=== PATIENT | female | born 1940 | race Caucasian/White ===

== ENCOUNTER 2018-01-16 09:48 | Outpatient (CLI) | payer MEDICARE, BC | END 2018-01-16 09:49 | disposition home or self-care (01) | LOC: BICMAMMO 09:48 | PROVIDERS: ATTEND Internal Medicine Hematology & Oncology | DX: Z08 Encounter for follow-up examination after completed treatment for malignant neoplasm (principal); Z85.3 Personal history of malignant neoplasm of breast; Z80.3 Family history of malignant neoplasm of breast | CPT/HCPCS: 77066; G0279 ==

== ENCOUNTER 2018-11-02 11:15 | Inpatient (IN) | payer MEDICARE, BC ==
[2018-11-06] MEDS ORDERED: Sodium Chloride 0.9% 30 ML ONE (06:46)
[2018-11-06] MEDS ORDERED: Thrombin 5000 UNITS/5 ML VIAL ONE (06:46)
[2018-11-06] MEDS ORDERED: Bupivacaine HCl 0.5%/Epinephrine 1:200,000/PF 30 ml Vial ONE (06:46)
[2018-11-06] MEDS ORDERED: Phenylephrine HCL 10 MG/ML VIAL ONE ×2 (06:47→16:38)
[2018-11-06] MEDS ORDERED: Albumin 5% 500 ML ONE (06:47)
[2018-11-06] MEDS ORDERED: Fentanyl 100 MCG/2 ML VIAL ONE ×4 (07:08→15:40)
--- NOTE | 2018-11-06 09:33 | HP ---
HISTORY OF PRESENT ILLNESS: Ms. Petersen is a 78-year-old female, who comes to our office for evaluation of low back pain. The patient states that she has had similar pain in 2016 with injections helped her feel better for few years. Recently, the pain has returned and she has had 3 injections in June without benefit. She states the most recent injection gave her relief for few hours, but then the pain came back. She has pain across her belt line, worse on the left than the right and she has pain radiating into her hamstrings and the longer she is standing the worse she gets. This pain is permitting from doing daily activities. 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 She has been taking tramadol, Tylenol 3 without any benefit. She denies physical therapy. She states standing is worse than if she rotates at any point. She has a very sharp pain. REVIEW OF SYSTEMS: A 10-point review of systems has been completed and is negative other than stated in the above HPI. PAST MEDICAL HISTORY: Breast cancer, hyperlipidemia, chronic back pain, hypertension. PAST SURGICAL HISTORY: Breast cancer 12/2015. FAMILY HISTORY: Father is , diagnosed with heart disease. Mother is , diagnosed with cancer. Children are alive. SOCIAL HISTORY: The patient is a nonsmoker. Denies alcohol or other illicit drug use. MEDICATIONS: 1. Tylenol 3. 2. Valsartan. 3. Rosuvastatin. 4. Aspirin 81 mg. 5. Anastrozole. 6. Vitamin D3. 7. Escitalpram. ALLERGIES: NO KNOWN DRUG ALLERGIES. PHYSICAL EXAMINATION: CONSTITUTIONAL: Well appearing, well nourished, alert. RESPIRATIONS: Normal work of breathing on room air. NEUROLOGIC: Awake, alert, oriented x3. Speech is spontaneous, fluent. Normal fund of knowledge. Cranial nerves grossly intact. Lower extremities 5/5 bilateral strength in hip flexion, knee flexion, knee extension, dorsiflexion, plantar flexion, EHL, no radiculopathy. Single leg raise bilaterally normal. Hip rotation normal bilaterally. Tender to palpate lumbar spine. Deep tendon reflexes diminished bilaterally. Negative Babinski. No clonus. SENSORY: Light touch intact. GAIT AND STATION: Sit to stand normal. Normal gait. IMAGING DATE: MRI L2-L3 stenosis, L3-L4 foraminal stenosis, L4-L5 lateral recess disease, L5-S1 foraminal stenosis on both sides. Flexion, extension in standing, she develops an L4-L5 listhesis not present supine. There is greater than 3 mm of instability with flexion extension. ASSESSMENT: The patient has lumbar stenosis with neurogenic claudication as well as spondylolisthesis. Dr. Huff has offered surgery, laminectomy L2 through S1 with a TLIF at L4-L5 and L5-S1 to stabilize. The patient states that she understands the risks and is willing to proceed with surgery. Job ID: [id number]
[2018-11-06 12:36] LABS: Hemoglobin 11.1 g/dL (12.0-16.0)
[2018-11-06] MEDS ORDERED: Meperidine HCl/PF 25 MG/ML VIAL SLOW IVP PRN (13:05)
[2018-11-06] MEDS ORDERED: PACU-Morphine 4MG/ML VIAL SLOW IVP PRN (13:05)
[2018-11-06] MEDS ORDERED: Promethazine HCl 25 MG/ML VIAL IM PRN ×2 (13:05→14:01)
[2018-11-06] MEDS ORDERED: Promethazine HCl 25 MG/ML VIAL SLOW IVP PRN (13:05)
[2018-11-06] MEDS ORDERED: Morphine Sulfate 2 MG/ML SYRINGE SLOW IVP PRN (13:05)
[2018-11-06] MEDS ORDERED: Ondansetron HCl/PF 4 MG/2 ML Vial IVP PRN (13:05)
[2018-11-06] MEDS ORDERED: HYDROmorphone 2 MG/ML VIAL SLOW IVP PRN (13:05)
[2018-11-06 13:41] LABS: Hemoglobin 10.3 g/dL (12.0-16.0)
[2018-11-06] MEDS ORDERED: Acetaminophen/Codeine 30-300mg Tablet PO PRN (14:01)
[2018-11-06] MEDS ORDERED: diphenhydrAMINE 25 MG CAP PO PRN (14:01)
[2018-11-06] MEDS ORDERED: Mag-Al 1200 mg/1200 mg/30 ML UDCUP PO PRN (14:01)
[2018-11-06] MEDS ORDERED: Acetaminophen 325 MG TAB PO PRN (14:01)
[2018-11-06] MEDS ORDERED: Bisacodyl 10 MG SUPP PR PRN (14:01)
[2018-11-06] MEDS ORDERED: Milk Of Magnesia 30 ML UDCUP PO PRN (14:01)
[2018-11-06] MEDS ORDERED: traMADol HCl 50 MG TAB PO PRN (14:01)
[2018-11-06] MEDS ORDERED: Promethazine 25 MG TAB PO PRN (14:01)
[2018-11-06] MEDS ORDERED: Ondansetron PF 4 MG/2 ML Vial IVP PRN (14:01)
[2018-11-06] MEDS ORDERED: diphenhydrAMINE 50 MG/ML VIAL IVP PRN (14:01)
[2018-11-06] MEDS ORDERED: Morphine 4 MG/ML VIAL SLOW IVP PRN (14:01)
[2018-11-06] MEDS ORDERED: Acetaminophen 500 MG TAB PO PRN (14:04)
[2018-11-06] MEDS ORDERED: Anastrozole 1 MG TAB PO SCH (14:15)
[2018-11-06] MEDS ORDERED: Morphine 2 MG/ML SYRINGE SLOW IVP PRN (14:54)
[2018-11-06 16:38] VITALS: BMI 24.6
[2018-11-06] MEDS ORDERED: Lidocaine 1% PF 5 ML VIAL ONE (16:38)
[2018-11-06] MEDS ORDERED: ePHEDrine 50 MG/ML VIAL ONE (16:38)
[2018-11-06] MEDS ORDERED: PROPOFOL 200 MG/20 ML VIAL ONE (16:38)
[2018-11-06] MEDS ORDERED: Rocuronium Bromide 10 MG/ML (10ML VIAL) ONE (16:38)
[2018-11-06] MEDS ORDERED: Dexamethasone 20 MG/5 ML VIAL ONE (16:38)
[2018-11-06] MEDS ORDERED: Glycopyrrolate 0.2 MG/ML 5 ML SYRINGE ONE (16:38)
[2018-11-06] MEDS ORDERED: Ondansetron PF 4 MG/2 ML Vial ONE (16:38)
--- NOTE | 2018-11-06 16:39 | OP ---
DATE OF PROCEDURE: 11/06/2018 FREEZER TUNNEL OPERATOR: Iris Cast PA-C. PREOPERATIVE INDICATION: Treat pain and prevent neurological deterioration. PREOPERATIVE DIAGNOSES: 1. Multilevel lumbar stenosis with neurogenic claudication. 2. Lumbosacral foraminal disease. 3. Bilateral L5 radiculopathic pain from collapse of intervertebral disk. 4. Unstable spondylolisthesis, L4-L5. POSTOPERATIVE DIAGNOSES: 1. Multilevel lumbar stenosis with neurogenic claudication. 2. Lumbosacral foraminal disease. 3. Bilateral L5 radiculopathic pain from collapse of intervertebral disk. 4. Unstable spondylolisthesis, L4-L5. OPERATIVE PROCEDURES: 1. Decompressive laminectomy, medial facetectomy, foraminotomy at L2-L3, L3-L4, L4-L5, and L5-S1. 2. Transforaminal lumbar interbody arthrodesis, L4-L5 and L5-S1. 3. Placement of intervertebral biomechanical device, L4-L5 and L5-S1. 4. Pedicle screw and isis instrumentation, L4 through S1. 5. Posterolateral arthrodesis, L4-L5 and L5-S1. 6. Local morselized autograft and morselized allograft. PREOPERATIVE MEDICATIONS: Ancef 2 g IV. DRAIN NUMBER: One. DRAIN TYPE: 10-Kiswahili Ton. DESCRIPTION OF PROCEDURE: The patient was brought to the operating room. General endotracheal anesthesia was induced. The patient was carefully positioned prone on the Dinesh frame with the appropriate padding for the chest and hips. A lateral fluoro radiograph was used to plan our incision. The lumbar skin was sterilely prepped and draped. We opened a midline incision with a 10 blade knife and we controlled bleeding with bipolar and monopolar cautery. We used monopolar cautery to dissect through subcutaneous tissues to the thoracodorsal fascia. We incised the fascia in the midline and we reflected the paraspinal muscles off the spinous process and laminae of L2, L3, L4, L5, and S1. Self-retaining retractors were placed and a lateral fluoro radiograph confirmed the levels upon which we were operating. We then carried our dissection over the facet joints at L3-L4, L4-L5. and L5-S1. We exposed the transverse processes of L4 and L5 bilaterally as well as the sacral ala bilaterally. We irrigated with bacitracin irrigation. We then used an Adson rongeur to remove the spinous process of L2, L3, L4, L5, and the superior portion of the sacrum. Using Kerrison rongeurs, we fashioned our laminectomy down the midline. We widened our laminectomy defect using Kerrisons. We performed medial facetectomies. We undermined the lateral recesses and we removed bone spurs until ball probe could pass through the lateral recess and out the foramen where the L2, L3, L4, L5, and S1 nerve roots. Once our decompression was secured, we turned our attention to fusion and instrumentation. We performed a complete facetectomy at L4-L5 and L5-S1 on the left. With these access points, we entered the intervertebral space at the L4-L5 and L5-S1 levels. We incised the disks and removed disk contents using curettes and rongeurs. We used a rectangular shaped bone rasp to measure the height of each interspace. The lumbosacral interspace measured 9 mm and the L4-L5 interspace measured 12 mm in height. We prepared the endplates for grafting. We brought the appropriately-sized PEEK intervertebral grafts into the field. These were loaded with demineralized bone matrix and morselized autograft. The autograft was obtained from our laminectomy bone, which was carefully cleaned of soft tissue, morcellized, and added into demineralized bone matrix to form our fusion substrate. The PEEK intervertebral grafts were advanced into the interspace under radiographic guidance to the appropriate depth. We turned our attention to pedicle screw instrumentation. Using bony anatomic landmarks, palpation of the medial portion of the pedicles and a lateral fluoro radiograph as our guide, we chose the entry points for pedicle screws at L4, L5, and S1 bilaterally. We drilled out our entry points and then used a bone awl to advance our trajectories into the vertebral bodies. We tapped each trajectory with a threaded tap and we probed them. The ball probe confirmed that our screw trajectories were completely encased in bone. We then placed 6.5 mm in diameter pedicle screws at L4, L5, and S1 bilaterally. A 360-degree image set was generated with our isocentric C-arm, confirming adequate positioning of our pedicle screw instrumentation. We then irrigated with bacitracin irrigation. With the high-speed drill, we decorticated the transverse processes of L4 and L5 bilaterally as well as the sacral ala. Over the decorticated bone, we left demineralized bone matrix and morselized autograft as our posterolateral fusion substrate. We dropped the rods down the screw heads and tightened caps over the rods. Using a torque/counter-torque mechanism, we ensured adequate tightness. Before final tightening, we applied gentle compression across each interspace to keep our interbody grafts in place. With a ball probe, we probed the L4 and L5 nerve root foramina and found them widely decompressed. We then irrigated the center of the wound. We treated the wound with vancomycin powder and we tunneled the drain inferiorly through a separate stab incision. We closed our incision in anatomical layers over the drain and we applied a sterile dressing. This was a clean case, no contamination. Job ID: [id number]
[2018-11-06] MEDS: tiZANidine HCl 4 MG TAB PO PRN (16:48)
[2018-11-06] MEDS: traMADol HCl 50 MG TAB PO PRN (16:49)
[2018-11-06] MEDS: Sodium Chloride 0.9% 1,000 ML IV SCH (17:01)
[2018-11-06] MEDS: CEFAZOLIN 2 GM in Premix Bag 1 BAG IVPB SCH ×2 (17:02→23:00)
[2018-11-06] MEDS ORDERED: Sodium Chloride 0.9% 1,000 ML IV SCH (19:15)
[2018-11-06 19:27] LABS: Hemoglobin 8.3 g/dL (12.0-16.0)
[2018-11-06] MEDS: Rosuvastatin 10 MG TAB PO SCH (20:38)
[2018-11-06] MEDS: Escitalopram Oxalate 10 mg Tablet PO SCH (20:38)
[2018-11-06] MEDS: Acetaminophen/Codeine 30-300mg Tablet PO PRN (20:39)
[2018-11-07] MEDS: tiZANidine HCl 4 MG TAB PO PRN ×2 (03:57→14:01)
[2018-11-07] MEDS: traMADol HCl 50 MG TAB PO PRN (03:57)
[2018-11-07] MEDS: Sodium Chloride 0.9% 1,000 ML IV SCH ×3 (03:58→21:13)
[2018-11-07 05:03] LABS: #Lymphocytes 0.6 thou/uL (1.20-3.40); #Monocytes 0.8 thou/uL (0.11-0.59); #Neutrophils 7.2 thou/uL (1.40-6.50); %Basophils 0.3 % (0.0-1.0); %Eosinophils 0.1 % (0.0-10.0); %Lymphocytes 7.3 % (21.0-51.0); %Neutrophils 83.2 % (42.0-75.0); Hemoglobin 7.6 g/dL (12.0-16.0); Mean Corpuscular HGB CONC 33.4 g/dL (32.0-36.0); Mean Corpuscular Hemoglobin 33.5 pg (27.0-31.0); Mean Platelet Volume 8.4 fL (7.4-10.4); Platelet Count 107 thou/uL (130-400); Platelet Morphology Comment Appears Decreased; RBC Distribution Width 11.7 % (11.5-14.5); Red Blood Cell (RBC) Count 2.26 mill/uL (4.20-5.40); White Blood Cell (WBC) Count 8.7 thou/uL (4.8-10.8)
[2018-11-07] MEDS: CEFAZOLIN 2 GM in Premix Bag 1 BAG IVPB SCH ×3 (05:54→22:17)
[2018-11-07] MEDS: Acetaminophen/Codeine 30-300mg Tablet PO PRN ×3 (08:45→18:42)
[2018-11-07] MEDS: Valsartan 80 MG TAB PO SCH (08:49)
[2018-11-07] MEDS: Hydrochlorothiazide 25 MG TAB PO SCH (08:49)
[2018-11-07] MEDS ORDERED: Non-Formulary Item 1 EACH (Valsartan/Hydrochlorothiazide [Valsartan-Hctz 160-12.5 Mg Tab] PO SCH (09:00)
[2018-11-07] MEDS: Rosuvastatin 10 MG TAB PO SCH (20:46)
[2018-11-07] MEDS: Escitalopram Oxalate 10 mg Tablet PO SCH (20:46)
[2018-11-08] MEDS: Acetaminophen/Codeine 30-300mg Tablet PO PRN ×4 (06:28→21:02)
[2018-11-08] MEDS: CEFAZOLIN 2 GM in Premix Bag 1 BAG IVPB SCH ×3 (06:28→22:38)
[2018-11-08] MEDS: Valsartan 80 MG TAB PO SCH (09:31)
[2018-11-08] MEDS: Hydrochlorothiazide 25 MG TAB PO SCH (09:31)
--- NOTE | 2018-11-08 09:52 | PRG ---
DATE OF SERVICE: 11/08/2018 Ms. Petersen is 2 days out from a long segment lumbar decompression with a two-level TLIF. She got up and moved yesterday. Her back is sore. It is a little bit more sore today than it was yesterday. She looks forward to meeting with Physical Therapy today in finding out if there is a bed in the inpatient rehabilitation facility that can take her. Once such a bed becomes available, we can make a transfer. Until then, she will work with our therapy group in the hospital. Job ID: [id number] MTDD
[2018-11-08] MEDS: Sodium Chloride 0.9% 1,000 ML IV SCH (19:49)
[2018-11-08] MEDS: tiZANidine HCl 4 MG TAB PO PRN (21:02)
[2018-11-08] MEDS: Rosuvastatin 10 MG TAB PO SCH (21:02)
[2018-11-08] MEDS: Escitalopram Oxalate 10 mg Tablet PO SCH (21:02)
[2018-11-09] MEDS: Acetaminophen/Codeine 30-300mg Tablet PO PRN ×4 (03:37→18:22)
[2018-11-09] MEDS: tiZANidine HCl 4 MG TAB PO PRN (03:37)
[2018-11-09] MEDS: CEFAZOLIN 2 GM in Premix Bag 1 BAG IVPB SCH (06:23)
[2018-11-09] MEDS: Valsartan 80 MG TAB PO SCH (08:11)
[2018-11-09] MEDS: Hydrochlorothiazide 25 MG TAB PO SCH (08:11)
[2018-11-09] MEDS: Sodium Chloride 0.9% 1,000 ML IV SCH (09:48)
--- NOTE | 2018-11-09 11:34 | PRG ---
DATE OF SERVICE: 11/09/2018 Ms. Petersen is 3 days out from decompression and fusion of lumbar spine. She walked around the halls yesterday and went farther than she has since surgery. Her drain is tapering off nicely and can be removed. I do not find any new deficits on exam. When there is a bed open in rehab, she can be transferred. Job ID: [id number] MTDD
[2018-11-09 15:29] VITALS: BP 168/72; TEMP 98.6
== END 2018-11-09 19:11 | DRG 455 ==
LOC: SURG A 11-06 05:42
PROVIDERS: ADMIT Neurological Surgery; ATTEND Neurological Surgery
PROC: 0SG00AJ Fusion of Lumbar Vertebral Joint with Interbody Fusion Device, Posterior Approach, Anterior Column, Open Approach (ICD-10-PCS; principal; 2018-11-06)
PROC: 0SG0071 Fusion of Lumbar Vertebral Joint with Autologous Tissue Substitute, Posterior Approach, Posterior Column, Open Approach (ICD-10-PCS; 2018-11-06)
PROC: 0SG30AJ Fusion of Lumbosacral Joint with Interbody Fusion Device, Posterior Approach, Anterior Column, Open Approach (ICD-10-PCS; 2018-11-06)
PROC: 0SG3071 Fusion of Lumbosacral Joint with Autologous Tissue Substitute, Posterior Approach, Posterior Column, Open Approach (ICD-10-PCS; 2018-11-06)
PROC: 01NB0ZZ Release Lumbar Nerve, Open Approach (ICD-10-PCS; 2018-11-06)
PROC: 30233N1 Transfusion of Nonautologous Red Blood Cells into Peripheral Vein, Percutaneous Approach (ICD-10-PCS; 2018-11-06)
DX: M48.062 Spinal stenosis, lumbar region with neurogenic claudication (principal); M43.16 Spondylolisthesis, lumbar region; E78.5 Hyperlipidemia, unspecified; I25.10 Atherosclerotic heart disease of native coronary artery without angina pectoris; G89.29 Other chronic pain; I10 Essential (primary) hypertension; Z85.3 Personal history of malignant neoplasm of breast; Z79.82 Long term (current) use of aspirin; Z98.890 Other specified postprocedural states
CPT/HCPCS: 36415; 36430; 76000; 85014; 85018; 85025; 86850; 86900; 86901; C1713; C1768; J0131; J0670; J0690; J1100; J2001; J2270; J2370; J2405; J2704; J3010; J3370; J3490; P9016; P9045; Q0163

== ENCOUNTER 2018-12-18 13:16 | Outpatient (CLI) | payer MEDICARE, BC ==
[2018-11-02 12:51] LABS: Hemoglobin 13.3 g/dL (12.0-16.0); Mean Corpuscular HGB CONC 33.3 g/dL (32.0-36.0); Mean Corpuscular Volume 99.2 fL (78.0-98.0); Mean Platelet Volume 9.2 fL (7.4-10.4); Platelet Count 165 thou/uL (130-400); RBC Distribution Width 11.8 % (11.5-14.5); Red Blood Cell (RBC) Count 4.04 mill/uL (4.20-5.40); White Blood Cell (WBC) Count 7.4 thou/uL (4.8-10.8)
[2018-11-02 13:09] LABS: Prothrombin Time 13.5 SEC (12.0-14.7)
[2018-11-02 13:14] LABS: Anion Gap 15 mmol/L (10-20); BUN (Urea Nitrogen) 21 mg/dL (9.8-20.1); Calc. Creatinine Clearance 0 mL/min (70-130); Carbon Dioxide 27 mmol/L (23-31); Chloride 102 mmol/L (98-107); Estimated GFR-MDRD 68; Glucose 72 mg/dL (83-110); Potassium 4.7 mmol/L (3.5-5.1); Sodium 139 mmol/L (136-145)
--- NOTE | 2018-12-18 15:24 | RAD ---
LUMBAR SPINE TWO VIEWS: INDICATIONS: Follow up postop lumbar spine. COMPARISON: Prior lumbar spine radiographs, dated 10/02/2018. FINDINGS: Since the comparison examination, there have been bilateral pedicle screws placed at L4 through S1, w ith interconnecting cables. There are intervertebral disk cages at L4-L5 and at L5-S1. Spinal align ment appears stable. Multilevel disk degenerative disease is similar appearing. No acute osseous ab normality is evident. IMPRESSION: Postoperative lumbar spine. POS: CET
== END 2018-12-18 13:17 | disposition home or self-care (01) ==
LOC: TBSIIMAG 13:16
PROVIDERS: ATTEND Neurological Surgery
DX: Z01.812 Encounter for preprocedural laboratory examination (principal); M51.36 Other intervertebral disc degeneration, lumbar region; M48.061 Spinal stenosis, lumbar region without neurogenic claudication; M43.16 Spondylolisthesis, lumbar region; Z98.890 Other specified postprocedural states
CPT/HCPCS: 72100; 80048; 85027; 85610; 85730

== ENCOUNTER 2019-01-25 14:28 | Outpatient (CLI) | payer MEDICARE, BC ==
--- NOTE | 2019-01-25 15:10 | MMO ---
Bilateral MAMMO Bilat Diag DDI+JAEL. CLINICAL HISTORY: Patient is 78 years old and is seen for diagnostic exam. The patient has no family history of breast cancer. The patient has a history of invasive ductal right breast carcinoma in 2017. The patient has a history of right Lumpectomy in 2017 - malignant. VIEWS: The views performed were: bilateral craniocaudal with tomosynthesis; bilateral mediolateral oblique with tomosynthesis; and bilateral mediolateral with tomosynthesis. FILMS COMPARED: The present examination has been compared to prior imaging studies performed at [facility] on 04/03/2015, 04/09/2016, 12/16/2016 and 01/16/2018. MAMMOGRAM FINDINGS: The breasts are heterogeneously dense, which could obscure a lesion on mammography. Finding 1: There are stable benign appearing calcifications seen in both breasts. Finding 2: There is a stable post-surgical scar seen in the right breast. There are no suspicious masses, suspicious calcifications, or new areas of architectural distortion. IMPRESSION: THERE IS NO MAMMOGRAPHIC EVIDENCE OF MALIGNANCY. A ROUTINE FOLLOW-UP MAMMOGRAM IN 1 YEAR IS RECOMMENDED. THE RESULTS OF THIS EXAM WERE SENT TO THE PATIENT. ACR BI-RADS Category 2 - Benign finding MAMMOGRAPHY NOTE: 1. A negative mammogram report should not delay a biopsy if a dominant of clinically suspicious mass is present. 2. Approximately 10% to 15% of breast cancers are not detected by mammography. 3. Adenosis and dense breasts may obscure an underlying neoplasm. Reported by: POPEYE REDD MD Electonically Signed: [id number]
== END 2019-01-25 14:29 | disposition home or self-care (01) ==
LOC: BICMAMMO 14:28
PROVIDERS: ATTEND Internal Medicine Hematology & Oncology
DX: Z08 Encounter for follow-up examination after completed treatment for malignant neoplasm (principal); Z85.3 Personal history of malignant neoplasm of breast; Z98.890 Other specified postprocedural states
CPT/HCPCS: 77066; G0279

== ENCOUNTER 2019-07-18 09:38 | Outpatient (CLI) | payer MEDICARE, BC ==
--- NOTE | 2019-07-18 10:45 | MRI ---
MRI of thebrain with and without contrast: 07/18/2019 COMPARISON:None available HISTORY:Breast cancer, staging examination TECHNIQUE: Multiplanar multisequence MR imaging of thebrain with and without contrast Findings:The diffusion weighted imaging demonstrates no evidence for acute infarction. The axial grad ient echo imaging demonstrates no evidence for intracranial hemorrhage. Numerous foci of increased T2 and FLAIR signal noted within the periventricular, deep, and subcortica l white matter, evidence of small vessel disease. The imaged paranasal sinuses/mastoid air cells demonstrate normal signal intensity. Arterial flow voi ds at the axial level of the skull base appear grossly unremarkable on the T2-weighted imaging. The postcontrast imaging demonstrates no abnormal enhancement. No MR evidence of intracranial metasta tic disease. IMPRESSION:No MR evidence of intracranial metastatic disease.
== END 2019-07-18 09:39 | disposition home or self-care (01) ==
LOC: MRI 09:38
PROVIDERS: ATTEND Internal Medicine Hematology & Oncology
DX: R51 Headache (principal); G31.84 Mild cognitive impairment of uncertain or unknown etiology; H54.7 Unspecified visual loss
CPT/HCPCS: 70553; 82565

== ENCOUNTER 2020-02-15 12:30 | Outpatient (CLI) | payer MEDICARE, BC ==
--- NOTE | 2020-02-15 13:04 | MMO ---
Bilateral MAMMO Bilat Diag DDI+JAEL. CLINICAL HISTORY: Patient is 79 years old and is seen for diagnostic exam. The patient has no family history of breast cancer. The patient has a history of invasive ductal right breast carcinoma in 2017. The patient has a history of right Lumpectomy in 2017 - malignant. VIEWS: The views performed were: bilateral craniocaudal with tomosynthesis; bilateral mediolateral oblique with tomosynthesis; and bilateral mediolateral with tomosynthesis. FILMS COMPARED: The present examination has been compared to prior imaging studies performed at [facility] on 04/09/2016, 12/16/2016, 01/16/2018 and 01/25/2019. This study has been interpreted with the assistance of computer-aided detection. MAMMOGRAM FINDINGS: The breasts are heterogeneously dense, which could obscure a lesion on mammography. Finding 1: There are stable benign appearing calcifications seen in both breasts. Finding 2: There is a stable post-surgical scar seen in the right breast. There are no suspicious masses, suspicious calcifications, or new areas of architectural distortion. IMPRESSION: THERE IS NO MAMMOGRAPHIC EVIDENCE OF MALIGNANCY. A ROUTINE FOLLOW-UP MAMMOGRAM IN 1 YEAR IS RECOMMENDED. THE RESULTS OF THIS EXAM WERE SENT TO THE PATIENT. ACR BI-RADS Category 2 - Benign finding MAMMOGRAPHY NOTE: 1. A negative mammogram report should not delay a biopsy if a dominant of clinically suspicious mass is present. 2. Approximately 10% to 15% of breast cancers are not detected by mammography. 3. Adenosis and dense breasts may obscure an underlying neoplasm. Reported by: LUCAS LAGOS MD Electonically Signed: [id number]
== END 2020-02-15 12:31 | disposition home or self-care (01) ==
LOC: BICMAMMO 12:30
PROVIDERS: ATTEND Internal Medicine
DX: Z08 Encounter for follow-up examination after completed treatment for malignant neoplasm (principal); Z85.3 Personal history of malignant neoplasm of breast
CPT/HCPCS: 77066; G0279

== ENCOUNTER 2021-03-27 14:09 | Outpatient (CLI) | payer MEDICARE, BC | END 2021-03-27 14:10 | disposition home or self-care (01) | LOC: BICMAMMO 14:09 | PROVIDERS: ATTEND Internal Medicine | DX: Z08 Encounter for follow-up examination after completed treatment for malignant neoplasm (principal); Z85.3 Personal history of malignant neoplasm of breast | CPT/HCPCS: 77066; G0279 ==

== ENCOUNTER 2021-06-30 13:54 | Outpatient (CLI) | payer MEDICARE, BC | END 2021-06-30 13:55 | disposition home or self-care (01) | LOC: BICRAD 13:54 | PROVIDERS: ATTEND Neurological Surgery | DX: M54.50 Low back pain, unspecified (principal); Z98.1 Arthrodesis status | CPT/HCPCS: 72100 ==

== ENCOUNTER 2022-06-29 08:04 | Emergency (ER) | payer MEDICARE, BC ==
[2022-06-29] MEDS ORDERED: Dexamethasone 10 MG/ML VIAL ONE (08:50)
[2022-06-29] MEDS ORDERED: diphenhydrAMINE 50 MG/ML VIAL ONE (08:50)
[2022-06-29] MEDS ORDERED: Metoclopramide HCl 10 MG/2 ML VIAL ONE (08:50)
[2022-06-29] MEDS ORDERED: hydrALAZINE 20 MG/ML VIAL ONE (08:50)
[2022-06-29 08:56] LABS: #Eosinphils 0.1 thou/uL (0.0-0.7); #Lymphocytes 1.1 thou/uL (1.20-3.40); #Monocytes 0.9 thou/uL (0.11-0.59); #Neutrophils 10.7 thou/uL (1.40-6.50); %Basophils 0.1 % (0.0-1.0); %Eosinophils 0.9 % (0.0-10.0); %Lymphocytes 8.5 % (21.0-51.0); %Monocytes 7.1 % (0.0-10.0); %Neutrophils 83.4 % (42.0-75.0); Hemoglobin 13.6 g/dL (12.0-16.0); Mean Corpuscular Hemoglobin 33.6 pg (27.0-31.0); Mean Platelet Volume 9.4 fL (7.4-10.4); Platelet Count 144 10x3/uL (130-400); Red Blood Cell (RBC) Count 4.04 mill/uL (4.20-5.40); White Blood Cell (WBC) Count 12.8 10x3/uL (4.8-10.8)
[2022-06-29] MEDS ORDERED: Iopamidol-370 76% 500 ML 1 ML ONE (09:19)
[2022-06-29 09:20] LABS: ALT (SGPT) 15 U/L (8-55); AST (SGOT) 19 U/L (5-34); Albumin 3.8 g/dL (3.4-4.8); Alkaline Phosphatase 58 U/L (40-110); Anion Gap 11 mmol/L (10-20); BUN (Urea Nitrogen) 11 mg/dL (9.8-20.1); CK (CPK) 64 U/L (29-168); Calc. Creatinine Clearance 0 mL/min (70-130); Calcium 8.7 mg/dL (7.8-10.44); Carbon Dioxide 29 mmol/L (23-31); Chloride 101 mmol/L (98-107); Estimated GFR 78; Globulin 2.5 g/dL (2.4-3.5); Glucose 97 mg/dL (83-110); Lipase 17 U/L (8-78); Potassium 3.9 mmol/L (3.5-5.1); Protein, Total 6.3 g/dL (5.8-8.1); Sodium 137 mmol/L (136-145)
== END 2022-06-29 11:01 | disposition home or self-care (01) ==
LOC: ERS 08:04
DX: R51.9 Headache, unspecified (principal); D72.829 Elevated white blood cell count, unspecified; I10 Essential (primary) hypertension; E78.5 Hyperlipidemia, unspecified; Z79.82 Long term (current) use of aspirin; Z79.899 Other long term (current) drug therapy
CPT/HCPCS: 36415; 70496; 71045; 80053; 82550; 83690; 83880; 84484; 85025; 93005; 96365; 96366; 96375; J0360; J1100; J1200; J2765; Q9967

== ENCOUNTER 2024-06-07 10:49 | Outpatient (CLI) | payer MEDICARE, BC | END 2024-06-07 10:50 | disposition home or self-care (01) | LOC: BICMAMMO 10:49 | PROVIDERS: ATTEND Internal Medicine Hematology & Oncology | DX: Z12.31 Encounter for screening mammogram for malignant neoplasm of breast (principal); Z85.3 Personal history of malignant neoplasm of breast; Z98.890 Other specified postprocedural states | CPT/HCPCS: 77063; 77067 ==